=== PATIENT | female | born 1975 | race Caucasian/White ===

== ENCOUNTER 2018-07-20 18:14 | Emergency (ER) | payer OTHER ==
[~2018-07-20] VITALS: Ht 160 cm; Wt 56.7 kg
[2018-07-21] MEDS ORDERED: PHENERGAN25 MG PO (01:13)
[2018-07-21] MEDS ORDERED: PEPCID40 MG PO (01:13)
== END 2018-07-21 01:24 | disposition home or self-care (01) ==
LOC: ER 18:14
DX: K29.00 Acute gastritis without bleeding (principal)

== ENCOUNTER 2024-05-07 08:44 | Emergency (ER) | payer OTHER ==
[~2024-05-07] VITALS: Ht 160 cm; Wt 49.9 kg
[~2024-05-07 08:44] MED LIST: PEPCID40 MG PO; PHENERGAN25 MG PO
[2024-05-07] MEDS ORDERED: FAMOtidine 10 MG/ML (4ML VIAL) IV STA (09:25)
[2024-05-07] MEDS ORDERED: 0.9 % SODIUM CHLORIDE 1,000 ML IV STA (09:25)
[2024-05-07] MEDS ORDERED: METOCLOPRAMIDE HCL 5 MG/ML VIAL IV STA (09:26)
[2024-05-07] MEDS ORDERED: PROMETHAZINE HCL 50 MG/ML AMPUL IM STA (09:26)
[2024-05-07 10:12] LABS: HEMATOCRIT 40.6 % (36.0-45.00); HEMOGLOBIN 14.1 g/dL (12.0-15.00); MEAN CELL VOLUME 85.6 fL (80.00-100.00); MEAN CORPUSCULAR HEMOGLOBIN 29.7 pg (27.00-32.0); MEAN CORPUSCULAR HGB CONC 34.7 g/dl (32.0-36.0); PLATELET COUNT 207 K/uL (150-450); RED BLOOD COUNT 4.75 M/uL (4.00-6.00); RED CELL DISTRIBUTION WIDTH 13.7 % (11.5-14.5)
[2024-05-07 10:38] LABS: ALBUMIN 4.2 gm/dL (3.4-5.0); BILIRUBIN TOTAL 1.01 mg/dL (0.3-1.2); BILIRUBIN,CONJUGATED 0.2 mg/dL (0.0-0.2); BILIRUBIN,UNCONJUGATED 0.81 mg/dL (0.0-0.6); CALCIUM 9.4 mg/dL (8.5-10.1); CREATININE SERUM 0.77 mg/dL (0.55-1.02); GFR 80.35; POTASSIUM 4.04 mEq/L (3.5-5.1); TOTAL PROTEIN 8.6 gm/dL (6.4-8.2)
[2024-05-07 12:16] LABS: PH,URINE 5.5 (5.0-8.0); URINE APPEARANCE Clear; URINE BILIRRUBIN Negative (NEGATIVE); URINE BLOOD Trace; URINE COLOR Yellow; URINE GLUCOSE Negative (NEGATIVE); URINE KETONE Trace (NEGATIVE); URINE LEUKOCYTE Negative; URINE NITRATE Negative; URINE PROTEIN 30 (NEGATIVE)
[2024-05-07 12:19] LABS: URINE BACTERIA 110.8 uL (0.0-1933); URINE EPITHELIAL CELLS 14.9 uL (0.0-38.8); URINE RBC 22.1 uL (0.0-20.8); URINE WBC 6.9 uL (0.0-23.2)
[2024-05-07 12:53] LABS: URINE CAST 1.37 uL (0.0-1.40)
[2024-05-07] MEDS ORDERED: ONDANSETRON HCL 2 MG/ML VIAL IV STA (14:52)
[2024-05-07] MEDS ORDERED: ZOFRAN8 MG PO (17:44)
[2024-05-07] MEDS ORDERED: PEPCID AC20 MG PO (17:44)
[2024-05-07] MEDS ORDERED: KETOROLAC TROMETHAMINE 30 MG VIAL IM ONE (18:00)
== END 2024-05-07 17:58 | disposition home or self-care (01) ==
LOC: ER 08:46
PROVIDERS: General Practice
DX: R11.10 Vomiting, unspecified (principal)